=== PATIENT | female | born 1985 | race Two or more races ===

== ENCOUNTER 2021-06-11 13:25 | Emergency (ER) | payer OTHER ==
[~2021-06-11] VITALS: Ht 162.6 cm; Wt 63.5 kg
--- NOTE | 2021-06-11 13:41 | NUR ---
BIBS FOR FOR RIGHT ANKLE PAIN 02/05 AND SWELLING S/P TRIP AND FALL WHEN GOING DOWN THE STAIRS. WILL CONTINUE TO MONITOR THE PATIENT.
--- NOTE | 2021-06-11 14:33 | NUR ---
PT LAYING IN BED COMFORTABLY. BLANKET GIVEN.
[2021-06-11] MEDS ORDERED: IBUPROFEN 600 MG TABLET PO ONE (15:00)
[2021-06-11] MEDS ORDERED: IBUPROFEN 600 MG TABLET ONE (15:07)
--- NOTE | 2021-06-11 15:12 | NUR ---
PT LAYING IN BED COMFORTABLY. NEEDS MET.
[2021-06-11 15:58] VITALS: BP 110/68
[2021-06-11] MEDS ORDERED: DICL50TA7 PO (16:14)
--- NOTE | 2021-06-11 16:20 | NUR ---
R ANKLE IN EDNY WRAP
--- NOTE | 2021-06-11 16:26 | NUR ---
Patient discharged to home in stable condition. Written and verbal after care instructions given. Patient verbalizes understanding of instruction.
== END 2021-06-11 16:26 | disposition home or self-care (01) ==
LOC: ER 13:34
DX: M25.571 Pain in right ankle and joints of right foot (principal); W01.0XXA Fall on same level from slipping, tripping and stumbling without subsequent striking against object, initial encounter; Y93.89 Activity, other specified; Y92.89 Other specified places as the place of occurrence of the external cause; Y99.8 Other external cause status
CPT/HCPCS: 73610-TC